=== PATIENT | female | born 1975 | race Caucasian/White ===

== ENCOUNTER 2017-05-07 11:53 | Emergency (ER) | payer SELFPAY ==
[~2017-05-07] VITALS: Ht 152.4 cm; Wt 68.3 kg
[~2017-05-07 11:53] MED LIST: DARV PO; Z.0.UNKNOWN
[2017-05-07 11:59] VITALS: BP 139/67; PULSE 90; RESP 16; TEMP 99.2; O2SAT 99
[2017-05-07] MEDS ORDERED: SODIUM CHLOR 0.9% 1000 ML INJ 1,000 ML IV SCH (12:24)
[2017-05-07] MEDS ORDERED: SODIUM CHLORIDE 0.9% FLUSH 10 ML FLUSH IV FLUSH PRN (12:30)
[2017-05-07] MEDS ORDERED: ONDANSETRON HCL 4 MG/2 ML VIAL IVP ONE (12:30)
--- NOTE | 2017-05-07 12:30 | PD ---
HPI Chief Complaint: Flank/Kidney Pain Time Seen by Provider: 12:19 Travel History International Travel<30 days: No Contact w/Intl Traveler<30days: No Traveled to known affect area: No History of Present Illness HPI 42-year-old female complains of right flank pain and right-sided abdominal pain. Patient states that the pain started 2 days ago. Patient states the pain started is cramping pain right low quadrant the abdomen. Patient started having more severe pain in the right flank since yesterday. Patient states that she has nausea but no vomiting or diarrhea. Patient denies any dysuria or frequency. Patient denies any vaginal discharge or bleeding. Patient states that she had low-grade fever at home. On a scale of 1-10 the pain is a 6. PFSH Past Medical History Asthma: Yes Diminished Hearing: No Influenza Vaccination: No ?: Not LMP: wednesday Past Surgical History Gynecologic Surgery: Yes (CONE BIOPSY, LEEP PROCEDURE) Social History Alcohol Use: Yes (OCCASIONALLY) Tobacco Use: Yes (2 CIGARETTES A DAY) Substance Use: No Allergies-Medications (Allergen,Severity, Reaction): Coded Allergies: No Known Allergies (Verified Allergy, Mild, 05/07/17) Reported Meds & Prescriptions Reported Meds & Active Scripts Active Reported Unknown Meds (Miscellaneous Medication) Misc Review of Systems General / Constitutional: No: Fever Eyes: No: Visual changes HENT: No: Headaches Cardiovascular: No: Chest Pain or Discomfort Respiratory: No: Shortness of Breath Gastrointestinal: Positive: Nausea, Abdominal Pain Genitourinary: No: Dysuria Musculoskeletal: No: Pain Skin: No Rash Neurologic: No: Weakness Psychiatric: No: Depression Endocrine: No: Polydipsia Hematologic/Lymphatic: No: Easy Bruising Physical Exam Narrative GENERAL: Well-nourished, well-developed patient. SKIN: Focused skin assessment warm/dry. HEAD: Normocephalic. EYES: No scleral icterus. No injection or drainage. NECK: Supple, trachea midline. No JVD or lymphadenopathy. CARDIOVASCULAR: Regular rate and rhythm without murmurs, gallops, or rubs. RESPIRATORY: Breath sounds equal bilaterally. No accessory muscle use. GASTROINTESTINAL: Abdomen soft, non-distended. Mild to moderate tenderness and palpation right upper quadrant, and right mid abdomen the right lower quadrant of the abdomen. No rebound tenderness. No mass. MUSCULOSKELETAL: No cyanosis, or edema. BACK: Patient has moderate tenderness on palpation right flank area. Neurologic exam normal. Data Data Last Documented VS Vital Signs Date Time Temp Pulse Resp B/P (MAP) Pulse Ox O2 Delivery O2 Flow Rate FiO2 05/07/17 12:46 68 18 112/66 (81) 98 Room Air 05/07/17 11:59 99.2 Orders Orders Complete Blood Count With Diff (05/07/17 12:24) Comprehensive Metabolic Panel (05/07/17 12:24) Lipase (05/07/17 12:24) Urinalysis - C+S If Indicated (05/07/17 12:24) Ct Abd/Pel W Iv Contrast(Rout) (05/07/17 12:24) Iv Access Insert/Monitor (05/07/17 12:24) Ecg Monitoring (05/07/17 12:24) Ondansetron Inj (Zofran Inj) (05/07/17 12:30) Sodium Chlor 0.9% 1000 Ml Inj (Ns 1000 M (05/07/17 12:24) Sodium Chloride 0.9% Flush (Ns Flush) (05/07/17 12:30) Ed Urine Pregnancytest Poc (05/07/17 12:24) Urine Culture (05/07/17 12:30) Iohexol 350 Inj (Omnipaque 350 Inj) (05/07/17 13:17) Ceftriaxone Inj (Rocephin Inj) (05/07/17 13:30) Labs Laboratory Tests Test 05/07/17 12:30 White Blood Count 11.1 TH/MM3 Red Blood Count 4.46 MIL/MM3 Hemoglobin 11.9 GM/DL Hematocrit 35.7 % Mean Corpuscular Volume 80.0 FL Mean Corpuscular Hemoglobin 26.6 PG Mean Corpuscular Hemoglobin Concent 33.3 % Red Cell Distribution Width 13.6 % Platelet Count 335 TH/MM3 Mean Platelet Volume 7.4 FL Neutrophils (%) (Auto) 78.9 % Lymphocytes (%) (Auto) 13.4 % Monocytes (%) (Auto) 7.0 % Eosinophils (%) (Auto) 0.2 % Basophils (%) (Auto) 0.5 % Neutrophils # (Auto) 8.7 TH/MM3 Lymphocytes # (Auto) 1.5 TH/MM3 Monocytes # (Auto) 0.8 TH/MM3 Eosinophils # (Auto) 0.0 TH/MM3 Basophils # (Auto) 0.1 TH/MM3 CBC Comment DIFF FINAL Differential Comment Urine Collection Type CLEAN CATCH Urine Color YELLOW Urine Turbidity SLIGHT Urine pH 5.5 Urine Specific [place] 1.009 Urine Protein 30 mg/dL Urine Glucose (UA) NEG mg/dL Urine Ketones TRACE mg/dL Urine Occult Blood LARGE Urine Nitrite POS Urine Bilirubin NEG Urine Leukocyte Esterase MOD Urine RBC 10-14 /hpf Urine WBC 100-200 /hpf Urine WBC Clumps FEW Urine Squamous Epithelial Cells 6-8 /hpf Urine Bacteria MANY /hpf Microscopic Urinalysis Comment CULTURE INDICATED Urine Collection Time 12:30 Blood Urea Nitrogen 13 MG/DL Creatinine 0.89 MG/DL Random Glucose 86 MG/DL Total Protein 7.7 GM/DL Albumin 3.7 GM/DL Calcium Level 9.0 MG/DL Alkaline Phosphatase 65 U/L Aspartate Amino Transf (AST/SGOT) 17 U/L Alanine Aminotransferase (ALT/SGPT) 19 U/L Total Bilirubin 1.1 MG/DL Sodium Level 135 MEQ/L Potassium Level 3.5 MEQ/L Chloride Level 101 MEQ/L Carbon Dioxide Level 26.5 MEQ/L Anion Gap 8 MEQ/L Estimat Glomerular Filtration Rate 70 ML/MIN Lipase 114 U/L [facility] Medical Decision Making Medical Screen Exam Complete: Yes Emergency Medical Condition: Yes Interpretation(s) 1320 p.m. CBC within normal limit. WBC 11.1. 78 neutrophil. CMP within normal limit. UA positive with WBC and bacteria. [address] scan abdomen and pelvis shows right ovarian cyst. Differential Diagnosis Differential diagnosis including musculoskeletal, pyelonephritis, nephrolithiasis, cholecystitis, appendicitis, ovarian cyst, ovarian torsion, ectopic . Narrative Course 42-year-old female with right flank pain in the right low quadrant abdominal pain. Diagnosis Primary Impression: Pyelonephritis Additional Impression: Right ovarian cyst Patient Instructions: General Instructions Additional Instructions: Take medications as directed. Follow-up with personal physician and data analyst etl developer. Return if worse. Med/Other Pt SpecificInfo: Prescription(s) given Scripts Meloxicam (Mobic) 15 Mg Tab 15 MG PO DAILY for Pain, #10 TAB 0 Refills Prov: Darius Michelle MD 05/07/17 Sulfamethoxazole-Trimethoprim (Bactrim DS) 800-160 Mg Tab 1 TAB PO BID for Infection, #28 TAB 0 Refills Prov: Miguel Angel,Hung MD 05/07/17 Disposition: 01 DISCHARGE HOME Condition: Stable Darius Michelle MD May 07, 2017 12:30
[2017-05-07 12:43] LABS: BLOOD, URINE LARGE (NEG); GLUCOSE,URINE NEG (NEG); KETONE, URINE TRACE mg/dL (NEG); NITRITE,URINE POS (NEG); PH, URINE 5.5 (5.0-8.5)
[2017-05-07 12:46] VITALS: BP 112/66; PULSE 68; RESP 18; O2SAT 98
[2017-05-07 12:46] LABS: AUTOMATED NEUTROPHIL # 8.7 TH/MM3 (1.8-7.7); BASOPHIL # 0.1 TH/MM3 (0-0.2); BASOPHIL % 0.5 % (0.0-2.0); EOSINOPHIL % 0.2 % (0.0-4.0); HEMATOCRIT 35.7 % (35.0-46.0); HEMO FLAGS DIFF FINAL; LYMPH % 13.4 % (9.0-44.0); LYMPHOCYTE # 1.5 TH/MM3 (1.0-4.8); MEAN CORPUSCULAR HEMOGLOBIN 26.6 PG (27.0-34.0); MEAN CORPUSCULAR HGB CONC 33.3 % (32.0-36.0); NEUT % 78.9 % (16.0-70.0); PLATELET COUNT 335 TH/MM3 (150-450); RED BLOOD COUNT 4.46 MIL/MM3 (4.00-5.30); RED CELL DISTRIBUTION WIDTH 13.6 % (11.6-17.2); WHITE BLOOD COUNT 11.1 TH/MM3 (4.0-11.0)
[2017-05-07 12:52] LABS: METHOD OF COLLECTION CLEAN CATCH; URINE COLOR YELLOW (YELLW/STRAW)
[2017-05-07 12:53] LABS: WBC, URINE 100-200 /hpf (0-5)
[2017-05-07 12:54] LABS: BACTERIA, URINE MANY /hpf; COMMENT (UR) CULTURE INDICATED; CULTURE IF INDICATED CULTURE INDICATED
[2017-05-07 12:58] LABS: CHLORIDE 101 MEQ/L (98-107); POTASSIUM 3.5 MEQ/L (3.5-5.1); SODIUM (NA) 135 MEQ/L (136-145)
[2017-05-07 13:02] LABS: ANION GAP 8 MEQ/L (5-15); BICARBONATE 26.5 MEQ/L (21.0-32.0)
[2017-05-07 13:03] LABS: BLOOD UREA NITROGEN 13 MG/DL (7-18)
[2017-05-07 13:05] LABS: ALT (GPT) 19 U/L (10-53); AST (GOT) 17 U/L (15-37); GLOMERULAR FILTRATION RATE 70 ML/MIN (>89)
[2017-05-07 13:07] LABS: TOTAL BILIRUBIN ADULT 1.1 MG/DL (0.2-1.0)
[2017-05-07 13:08] LABS: ALKALINE PHOSPHATASE 65 U/L (45-117)
[2017-05-07] MEDS ORDERED: IOHEXOL 350 MG/ML 10 ML VIAL (for RAD DIAG) IVCONTRAST ONE (13:17)
[2017-05-07] MEDS ORDERED: cefTRIAXone INJ 1,000 MG in SODIUM CHLORIDE 0.9% INJ 100 ML IV ONE (13:30)
--- NOTE | 2017-05-07 13:49 | RADRPT ---
EXAM DATE/TIME: 05/07/2017 13:10 [place] COMPARISON: No previous studies available for comparison. INDICATIONS : Right flank and right lower quadrant pain. Nausea. IV CONTRAST: 85 cc Omnipaque 350 (iohexol) IV ORAL CONTRAST: No oral contrast ingested. RADIATION DOSE: 7.59 CTDIvol (mGy) MEDICAL HISTORY : Asthma. SURGICAL HISTORY : None. ENCOUNTER: Initial ACUITY: 1 day PAIN SCALE: 6/10 LOCATION: Right lower quadrant TECHNIQUE: Volumetric scanning of the abdomen and pelvis was performed. Using automated exposure control and ad justment of the mA and/or kV according to patient size, radiation dose was kept as low as reasonably achievable to obtain optimal diagnostic quality images. DICOM format image data is available electro nically for review and comparison. FINDINGS: LOWER LUNGS: The visualized lower lungs are clear. LIVER: Homogeneous density without lesion. There is no dilation of the biliary tree. No calcified [place] es. SPLEEN: Normal size without lesion. PANCREAS: Within normal limits. KIDNEYS: Normal in size and shape. There is no mass, stone or hydronephrosis. ADRENAL GLANDS: Within normal limits. VASCULAR: There is no aortic aneurysm. BOWEL/MESENTERY: The stomach, small bowel, and colon demonstrate no acute abnormality. There is no free intraperitone al air or fluid. The appendix and terminal ileum are normal. There is sigmoid diverticulosis. ABDOMINAL WALL: Within normal limits. RETROPERITONEUM: There is no lymphadenopathy. BLADDER: No wall thickening or mass. REPRODUCTIVE: There is an IUD within the uterus. Nabothian cysts are present. There is a mildly complex right ovari an cystic lesion measuring 3.1 cm. It contains a least one thin septation. INGUINAL: There is no lymphadenopathy or hernia. MUSCULOSKELETAL: There is a left unilateral pars defect at L5. No acute osseous abnormality is visualized. CONCLUSION: No definite abnormality is identified to explain the clinical symptoms. However, there is a mildly co mplex right ovarian cystic lesion measuring 3.1 cm. It contains a least one thin septation. Given the complexity suggest a followup ultrasound in 6-8 weeks to confirm resolution.. Sandeep Abbasi MD on May 07, 2017 at 13:43 Board Certified Radiologist. This report was verified electronically.
[2017-05-07] MEDS ORDERED: MOBI15TA PO (13:56)
[2017-05-07] MEDS ORDERED: BACT800T5 PO (13:56)
[2017-05-07 14:10] VITALS: BP 129/75; PULSE 70; RESP 18; O2SAT 99
== END 2017-05-07 14:22 | disposition home or self-care (01) ==
LOC: PHED 11:53
DX: N12 Tubulo-interstitial nephritis, not specified as acute or chronic (principal); N83.201 Unspecified ovarian cyst, right side; J45.909 Unspecified asthma, uncomplicated; B96.20 Unspecified Escherichia coli [E. coli] as the cause of diseases classified elsewhere; Z72.0 Tobacco use
CPT/HCPCS: 74177; 80053; 81001; 83690; 84703; 85025; 87077; 87086; 87186; 96361; 96365; 99285; J0696; J7030; Q9967